=== PATIENT | male | born 1950 | race Caucasian/White ===

== ENCOUNTER → 2018-01-17 | Outpatient (CLI) | payer MEDICARE, BC, MEDICAID ==
[~2018-01-17] MED LIST: ASCO-182 PO; CHOL500045 PO; CHOL500050 PO; DIME1CAP PO; DIME240C2 PO; ESZ2 PO; HYDR-4309 PO; IBUP-56 PO; INDO50CA92 PO; PER PO; RIVA15TA PO; RIVA20TA PO; TURM500C7 PO; VIT1CAPS11 PO; VIT1CAPS29 PO; VITA-200 PO
[2018-01-17 12:28] LABS: LDL CHOLESTEROL 49 mg/dl
== END ==
LOC: LAB 11:39
PROVIDERS: ATTEND Internal Medicine
DX: E78.00 Pure hypercholesterolemia, unspecified (principal)
CPT/HCPCS: 36415; 82040; 82247; 82310; 82374; 82435; 82465; 82565; 82947; 83718; 84075; 84132; 84155; 84295; 84450; 84460; 84478; 84520

== ENCOUNTER → 2018-06-08 | Outpatient (CLI) | payer MEDICARE, BC, MEDICAID ==
[~2018-06-08] MED LIST changes: +ALLO-2 PO; +INDO-23 PO; -INDO50CA92 PO
[2018-06-08 13:06] LABS: PLATELET COUNT, AUTOMATED 163 K/uL (150-450)
== END ==
LOC: LAB 12:49
PROVIDERS: ATTEND Specialist
DX: Z79.899 Other long term (current) drug therapy (principal); G35 Multiple sclerosis
CPT/HCPCS: 36415; 82040; 82247; 82310; 82374; 82435; 82565; 82947; 84075; 84132; 84155; 84295; 84450; 84460; 84520; 85025

== ENCOUNTER → 2019-01-17 | Outpatient (CLI) | payer MEDICARE, BC, MEDICAID ==
[~2019-01-17] MED LIST changes: +CHOL500016 PO; -HYDR-4309 PO; +HYDR-653 PO
== END ==
LOC: LAB 11:50
PROVIDERS: ATTEND Internal Medicine
DX: E78.00 Pure hypercholesterolemia, unspecified (principal)
CPT/HCPCS: 81001; G0103; 82465; 83718; 84153; 84478

== ENCOUNTER → 2019-01-17 | Outpatient (CLI) | payer MEDICARE, BC, MEDICAID ==
[2019-01-17 12:41] LABS: PLATELET COUNT, AUTOMATED 178 K/uL (150-450)
== END ==
LOC: LAB 11:53
PROVIDERS: ATTEND Specialist
DX: E55.9 Vitamin D deficiency, unspecified (principal); G35 Multiple sclerosis; Z79.899 Other long term (current) drug therapy
CPT/HCPCS: 36415; 82040; 82247; 82306; 82310; 82374; 82435; 82565; 82947; 84075; 84132; 84155; 84295; 84443; 84450; 84460; 84520; 85025; 87507

== ENCOUNTER → 2019-01-23 | Outpatient (CLI) | payer MEDICARE, BC, MEDICAID ==
[~2019-01-23] MED LIST changes: +GADOBENATE 529MG/1ML 15ML VIAL IVP ONE
--- NOTE | 2019-01-23 15:42 | RADIOLOGY IMAGING REPORT ---
FACILITY: [facility] PATIENT NAME: Castro Eagle : 1950 MR: [id number] V: [id number] EXAM DATE: ORDERING PHYSICIAN: FREDERIC CRANE TECHNOLOGIST: Location: Patient: Castro Eagle : 1950 Visit/Account:[id number] Date of Sevice: 01/23/2019 EXAMINATION: MRI brain without IV contrast MRI brain with IV contrast HISTORY: Multiple sclerosis. COMPARISON: Brain MRI dated 01/10/2018 from [facility]. TECHNIQUE: Multi-planar, multi-sequence brain MRI was performed before and after IV gadolinium. CONTRAST: 14 mL of IV MultiHance gadolinium. FINDINGS: The exam is mildly limited by patient motion artifact. Brain volume: Normal. Sagittal midline structures: Normal. Ventricles: Normal. Acute ischemic changes: There is no diffusion restriction present to suggest acute ischemia or cytot oxic edema. Hemorrhage: No acute hemorrhage or hemosiderin staining. Masses/edema: None. Enhancement: No abnormal intracranial enhancement. Pate-white: Negative. White matter: There are scattered T2/FLAIR hyperintense lesions in the periventricular deep white ma tter bilaterally, a few of which are oriented perpendicular to the lateral ventricular surface. Ther e are a few small bilateral pontine lesions. No discrete callososeptal or cerebellar lesions. The l esions are similar to prior exam, without new lesions. White matter volume appears normal. Vessels: Normal. Extra-axial: None. Calvarium/scalp: Negative. Skull base: Negative. Visualized sinuses/orbits: Negative. Visualized upper neck: Negative. IMPRESSION: 1. Nonenhancing multiple sclerosis plaques are unchanged. No new lesions. 2. No acute infarct, hemorrhage or intracranial mass lesion. Report Dictated By: Nneka June MD at 01/23/2019 3:27 PM Report E-Signed By: Nneka June MD at 01/23/2019 3:37 PM WSN:[id number]
== END ==
LOC: MRI 02:32
PROVIDERS: ATTEND Specialist
DX: G35 Multiple sclerosis (principal)
CPT/HCPCS: 70553; A9577

== ENCOUNTER → 2019-04-12 | Outpatient (CLI) | payer MEDICARE, BC, MEDICAID ==
[~2019-04-12] MED LIST changes: +AZIT-17 PO; -GADOBENATE 529MG/1ML 15ML VIAL IVP ONE; +METH4TAB66 PO
--- NOTE | 2019-04-12 15:49 | RADIOLOGY IMAGING REPORT ---
[place] [facility] [place] NAME: Castro Eagle : 1950 MR: [id number] V: [id number] EXAM DATE: ORDERING PHYSICIAN: SAY HUTCHINS TECHNOLOGIST: Location: [facility] [place] Patient: Castro Eagle : 1950 Visit/Account:[id number] Date of Sevice: 04/12/2019 Exam type: CHEST PA LAT History: Bronchitis Comparison: Interval 2015. Findings: There is a vague nodule projecting over the lateral aspect the left upper lobe which is not appreciat ed on the prior study. There is mild flattening the hemidiaphragms which can be seen with hyperinfla tion. There is mild increased peribronchial thickening in the medial right lung base. There is no e vidence of pleural effusions or overt pulmonary edema. The cardiac silhouette is normal in size. Th ere are mild spondylotic changes of the thoracic spine IMPRESSION: 1. Mild increased peribronchial thickening in the medial right lung base which may represent an acut e inflammatory process. Short-term interval follow-up chest or chest CT recommended There is a vague nodular density projecting over the lateral aspect left upper lobe not appreciated p reviously which could also be further evaluated with CT Mild hyperinflation of the lung gray Report Dictated By: Jessica Soria MD at 04/12/2019 3:38 PM Report E-Signed By: Jessica Soria MD at 04/12/2019 3:40 PM WSN:[id number]
== END ==
LOC: RAD 14:43
PROVIDERS: ATTEND Internal Medicine
DX: J40 Bronchitis, not specified as acute or chronic (principal)
CPT/HCPCS: 71046

== ENCOUNTER → 2019-04-17 | Outpatient (CLI) | payer MEDICARE, BC, MEDICAID ==
[~2019-04-17] MED LIST changes: +IOPAMIDOL 76% 100 ML INFUS BTL 100 ML ONE
--- NOTE | 2019-04-17 13:25 | RADIOLOGY IMAGING REPORT ---
FACILITY: [facility] PATIENT NAME: Castro Eagle : 1950 MR: [id number] V: [id number] EXAM DATE: ORDERING PHYSICIAN: SAY HUTCHINS TECHNOLOGIST: [place] [facility] [place] : 1950 Visit/Account:[id number] Date of Sevice: 04/17/2019 CT CHEST W & W/O CON History: bronchitis, hemoptysis, abnormal CXR ADDITIONAL CLINICAL HISTORY: None TECHNIQUE: Contiguous axial images were performed through the chest to the level of the adrenal gla nds with and without IV contrast. Coronal and sagittal reformatting was also performed.Dose Lowerin g Technique One of the following dose optimization techniques was utilized in the performance of this exam: Autom ated exposure control; adjustment of the mA and/or kV according to the patient's size; or use of an i terative reconstruction technique. Specific details can be referenced in the facility's radiology C T exam operational policy. Contrast: 75 mL Isovue-370 COMPARISON STUDIES: Two-view chest April 12, 2019 Lungs / Pleura: There is an 8 mm spiculated nodule lateral aspect the left upper lobe best apprecia maryjo on image 24 of series 3. There is mild fibrotic stranding towards the lateral pleural margin There is an additional 12 x 5 mm spiculated nodule in the medial aspect of the right lower lobe best appreciated on image 72 of series 3 and coronal image 53 of series 5. There is linear scarring versus atelectasis in the lower lobes as well. Peribronchial thickening is most evident in the lower lobes bilaterally. There is no evidence of pleural effusions. Mediastinum/nodes: There is a 1.3 x 0.7 cm right hilar lymph node Heart and vessels: negative. Musculoskeletal / Body wall: There are mild spondylotic changes of the thoracic spine and Schmorl's nodes at multiple levels Upper abdomen: negative. IMPRESSION: There are two spiculated masses present; one measuring 8 mm in the left upper lobe and one measuring 12 x 5 mm in the right lower lobe. Please see Fleischner Society recommendations below versus a PET/ CT Peribronchial thickening most prominent in the lower lobes which could be chronic although an acute p eribronchial inflammatory process is not excluded 1.3 x 0.7 cm right hilar lymph node. This could be reactive although follow-up recommended FLEISCHNER SOCIETY FOLLOW-UP GUIDELINES FOR NEWLY DETECTED INCIDENTAL NODULES IN PERSONS 35 YEARS OF AGE OR OLDER. *These recommendations do NOT apply to lung cancer screening, patients with immunosuppression or clive ents with a known primary malignancy. MULTIPLE SOLID NODULES If nodule size is < 6 mm: * Low risk patient ? No routine follow-up. * High risk patient ? Optional CT at 12 months. If nodule size is 6-8 mm: * Low risk patient ? CT at 3-6 months, then consider CT at 18-24 months if no change. * High risk patient ? CT at 3-6 months, then CT at 18-24 months if no change. If nodule size is > 8 mm: * Low risk patient ? CT at 3-6 months, then consider CT at 18-24 months if no change. * High risk patient ? CT at 3-6 months, then consider CT at 18-24 months if no change. LOW RISK PATIENT: Minimal or absent history of tobacco use and of other known risk factors. HIGH RISK PATIENT: Tobacco use, family history of lung cancer, upper pulmonary lobe location of nodul e, presence of emphysema, pulmonary fibrosis, older age. Chikihotrung H, Galen DP, Palmero JM, et al. Guidelines for Management of Incidental Pulmonary Nodules Dete cted on CT Images: From the Fleischner Society 2017. Radiology. [facility] Report Dictated By: Jessica Soria MD at 04/17/2019 1:01 PM Report E-Signed By: Jessica Soria MD at 04/17/2019 1:16 PM DUARTEN:JASON
== END ==
LOC: CT 03:49
PROVIDERS: ATTEND Internal Medicine
DX: R59.9 Enlarged lymph nodes, unspecified (principal); J98.09 Other diseases of bronchus, not elsewhere classified; R91.8 Other nonspecific abnormal finding of lung field
CPT/HCPCS: 36415; 71270; Q9967; 82040; 82247; 82310; 82374; 82435; 82565; 82947; 84075; 84132; 84155; 84295; 84450; 84460; 84520

== ENCOUNTER 2019-04-25 14:57 | Emergency (ER) | payer MEDICARE, BC, MEDICAID ==
[~2019-04-25 14:57] MED LIST changes: +DIA5 PO; -IOPAMIDOL 76% 100 ML INFUS BTL 100 ML ONE
--- NOTE | 2019-04-25 15:00 | ER Report ---
History and Physical Time Seen By : 14:55 HPI/ROS CHIEF COMPLAINT: [place] in finger HISTORY OF PRESENT ILLNESS: This is a 68-year-old male presents emergency department for fishhook in his right pinky finger. Patient states that about one hour prior to arrival, he had the fishhook stuck in his right pinky finger, on the dorsum side at the PIP joint. Bleeding is controlled. CMS is intact. Unsure of tetanus status, will update. REVIEW OF SYSTEMS: Respiratory: No cough, no dyspnea. Cardiovascular: No chest pain, no palpitations. Gastrointestinal: No vomiting, no abdominal pain. Musculoskeletal: No back pain. Integument: As above. Allergies: Coded Allergies: No Known Drug Allergies (Unverified , 03/15/19) Home Meds Active Scripts Cephalexin 500 Mg Tab (KEFLEX 500 MG TAB) 500 Mg Tablet, 500 MG PO Q6H for 5 Days, #20 TAB Prov:CHANEL TORRES PIPE RACKER-BC 04/25/19 Diazepam (VALIUM) 5 Mg Tablet, 5 MG PO DIRECTED, #2 TAB take 1 tablet 30-45 minutes before the Procedure, may repeat x 1 if needed Prov:SAY HUTCHINS MD 04/24/19 Allopurinol (Allopurinol) 300 Mg Tablet, 1 TAB PO QDAY, #90 TAB 3 Refills Prov:SAY HUTCHINS MD 01/19/19 Reported Medications Cholecalciferol (Vitamin D3) (VITAMIN D3) 5,000 Unit Capsule, 32923 UNIT PO QWEEK, CAPSULE 01/19/19 Vit A & D3 In Cod Liver Oil (COD LIVER OIL SOFTGEL) 1 Each Capsule, 1 CAP PO DAILY 12/24/15 Vitamin E Acetate (VITAMIN E) 400 Unit Capsule, 400 UNIT PO DAILY, CAPSULE 12/24/15 Ascorbic Acid (VITAMIN C) 500 Mg Tablet, 1 TAB PO DAILY 12/24/15 Dimethyl Fumarate (TECFIDERA) 240 Mg Capsule.dr, 1 CAP PO BID 04/26/15 Discontinued Scripts Methylprednisolone (METHYLPREDNISOLONE) 4 Mg Tab.ds.pk, 4 MG PO DIRECTED, #1 DOSE-PACK Prov:SAY HUTCHINS MD 04/12/19 Azithromycin (Z-PACK) 250 Mg Tablet, 1 DOSE-PACK PO DIRECTED, #1 DOSE-PACK 2 TABLETS DAY ONE THEN 1 TABLET EVERY DAY FOR THE NEXT 4 DAYS. Prov:SAY HUTCHINS MD 04/12/19 Past Medical/Surgical History Patient has a past medical and surgical history of DVT after surgery, hypertension, pneumonia, colonoscopy, gout, arthritis, ankle fracture, wears contact in the right eye, MS, skin cancer, left shoulder surgery, right great toe fusion, lasik surgery. Reviewed Nurses Notes: Yes Hx Smoking: Yes (SMOKED 1 PPD FOR 20 YEARS) Smoking Status: Former Smoker Exposure to Second Hand Smoke?: No Hx Alcohol Use: Yes Constitutional Vital Sign - Last 24 Hours 04/25/19 04/25/19 15:00 15:01 Temp 98.1 Pulse 65 59 Resp 16 B/P (MAP) 143/85 (104) 144/82 Pulse Ox 92 93 O2 Delivery Room Air Physical Exam General Appearance: The patient is alert, has no immediate need for airway protection and no current signs of toxicity. Eyes: Pupils equal and round no injection. Respiratory: Chest is non tender, lungs are clear to auscultation. Cardiac: regular rate and rhythm. Gastrointestinal: Abdomen is soft and non tender, no masses, bowel sounds normal. Musculoskeletal: Neck: Neck is supple and non tender. Extremities have full range of motion and are non tender. Skin: [place] embedded in the dorsum side of the right pinky with a PIP joint, CMS intact, leading controlled, does not appear to be in the joint itself. DIFFERENTIAL DIAGNOSIS: After history and physical exam differential diagnosis was considered for foreign body. Medical Decision Making ED Course/Re-evaluation ED Course The patient was admitted to room. A history and physical were obtained. Differential diagnoses were considered. After examination the patient, I did end up anesthetizing the area around the fish hook, I used an 11 blade scalpel made a very small incision at the puncture site, I was able to back the hook out without damage to the joint. CMS is intact, patient tolerated well. Given the proximity of the joint with the fish hook, I did put the patient on prophylactic antibiotics, prescription was sent to the patient's pharmacy, his tetanus was updated. He had no other questions or concerns at this time encouraged to follow-up with his PCP, return to ER for any other concerns. Was discharged home. Decision to Disposition Date: Apr 25, 2019 Decision to Disposition Time: 15:16 Depart Departure Latest Vital Signs Vital Signs Date Time Temp Pulse Resp B/P (MAP) Pulse Ox O2 Delivery O2 Flow Rate FiO2 04/25/19 15:01 98.1 59 16 144/82 93 Room Air Impression: Primary Impression: [place] injury to finger Condition: Improved Disposition: HOME OR SELF-CARE Referrals: SAY HUTCHINS MD (PCP) New Scripts Cephalexin 500 Mg Tab (KEFLEX 500 MG TAB) 500 Mg Tablet 500 MG PO Q6H for 5 Days, #20 TAB Prov: CHANEL TORRES-JUSTIN 04/25/19 Patient Instructions: Acute Wound Care (ED) Additional Instructions: Be sure to take the antibiotics as prescribed. Monitor the wound closely for signs of infection such as redness, pus, streaks moving up your arm or fevers, should you developed these please return to ER or follow up with her primary care provider. Drink plenty of water. Get plenty of rest. Return to ER for any other concerns or worsening symptoms. Problem Qualifiers Primary Impression: [place] injury to finger Encounter type: initial encounter Laterality: right Qualified Codes: S69.91XA - Unspecified injury of right wrist, hand and finger(s), initial encounter CHANEL TORRES-BC Apr 25, 2019 15:00
[2019-04-25 15:01] VITALS: BP 144/82
[2019-04-25] MEDS ORDERED: DIPHTH/TETANUS/ACEL. PERTUSSIS IM ONLY ONE (15:05)
[2019-04-25] MEDS ORDERED: CEPH500T7 PO (15:19)
== END 2019-04-25 15:32 | disposition home or self-care (01) ==
LOC: ER 15:07
DX: S61.246A Puncture wound with foreign body of right little finger without damage to nail, initial encounter (principal); W45.8XXA Other foreign body or object entering through skin, initial encounter; Z87.891 Personal history of nicotine dependence
CPT/HCPCS: 90471; 90715; 99283